=== PATIENT | male | born 1960 | race Two or more races ===

== ENCOUNTER 2021-04-04 18:20 | Emergency (ER) | payer SELFPAY ==
[~2021-04-04] VITALS: Ht 170.2 cm; Wt 106.6 kg
[2021-04-04 18:29] VITALS: BP 111/67
[2021-04-07] MEDS ORDERED: HALOPERIDOL LACTATE 5 MG/ML INJ VIAL ONE (11:58)
== END 2021-04-04 19:05 | disposition left against medical advice (07) ==
LOC: EDBD 18:20 → ER 18:24
DX: R07.89 Other chest pain (principal); R06.02 Shortness of breath; R53.1 Weakness; Z53.21 Procedure and treatment not carried out due to patient leaving prior to being seen by health care provider
CPT/HCPCS: 93005